=== PATIENT | female | born 1970 | race Caucasian/White ===

== ENCOUNTER 2017-03-29 14:22 | Emergency (ER) | payer BC ==
[~2017-03-29 14:22] MED LIST: HYDROCHLOROTHIA25 M1 PO; LAMICTAL200 M2 PO; MELOXICAM15 M1 PO; NEURONTIN300 M1 PO; PERCOCET 5-3251 EACH PO; PROTONIX40 M3 PO; QUESTRAN LIGHT210 G1 PO; RISPERIDONE1 M2 PO; SINGULAIR10 M1 PO; VITAMIN C500 M3 PO; VITAMIN D1000 UNI3 PO; WOMEN'S DAILY1 EAC6 PO
[2017-03-29] MEDS ORDERED: NORCO 5-325 TA1 EACH PO (18:18)
== END 2017-03-29 18:39 ==
LOC: EDMED 14:22
DX: S83.422A Sprain of lateral collateral ligament of left knee, initial encounter (principal); M76.62 Achilles tendinitis, left leg; I10 Essential (primary) hypertension; Z88.0 Allergy status to penicillin; Z79.899 Other long term (current) drug therapy; X50.1XXA Overexertion from prolonged static or awkward postures, initial encounter; Y92.019 Unspecified place in single-family (private) house as the place of occurrence of the external cause